=== PATIENT | female | born 1960 | race African-American/Black ===

== ENCOUNTER 2016-12-14 12:11 | Day surgery (SDC) | payer BC ==
[2016-12-13 15:22] VITALS: BMI 34.9
[2016-12-14] MEDS ORDERED: LIDOCAINE HCL/PF 2% SDV 5ML VIAL ONE (13:29)
[2016-12-14] MEDS ORDERED: ONDANSETRON 4 MG/2 ML VIAL ONE (13:29)
[2016-12-14] MEDS ORDERED: MIDAZOLAM HCL 2 MG/2 ML SINGLE DOSE VIAL ONE (13:29)
[2016-12-14] MEDS ORDERED: DEXAMETHASONE SOD PHOSPHATE 4 MG/1 ML VIAL ONE (13:29)
[2016-12-14] MEDS ORDERED: PROPOFOL 20 ML ONE (13:29)
[2016-12-14] MEDS ORDERED: oxyCODONE HCL 5 MG TABLET PO PRN (13:48)
[2016-12-14] MEDS ORDERED: PROMETHAZINE HCL 25 MG/1 ML VIAL IVPUSH PRN (13:48)
[2016-12-14] MEDS ORDERED: ONDANSETRON 4 MG/2 ML VIAL IVPUSH PRN (13:48)
--- NOTE | 2016-12-14 13:54 | HP ---
Past Medical History - Primary Care Physician PCP:: Suhas Dennis - Admission Chief Complaint: 56yo female with postmenopausal bleeding. History of Present Illness: h/o endometrial ablation. Pt had an episode of PMB and normal EMB by Dr. Nguyen. The US showed thickened endometrial echo complex and uterine myomas. History Source: Patient, Medical Record Limitations to Obtaining History: No Limitations - Past Medical History AMPOULE EXAMINER: No: Alzheimer's, CVA, Dementia, Migraine, Multiple Sclerosis, Peripheral Neuropathy, Parkinson's, Seizure, Syncope, TIA, Vertigo, Other Cardiovascular: Yes: CAD (Stent x 5), HTN, Other (hyperlipidemia) Pulmonary: No: Asthma, Bronchitis, Cancer, COPD, O2 Dependent, Pneumonia, Previously Intubated, Pulmonary Embolus, Pulmonary Fibrosis, Sleep Apnea, Other Gastrointestinal: No: Ascites, Cancer, Constipation, Crohn's Disease, Diverticulitis, Diverticulosis, Esophageal Varices, Gastritis, GERD, GI Bleed, Hemorrhoids, Hiatal Hernia, Inflamatory Bowel Disease, Irritable Bowel Disease, Pancreatitis, Peptic Ulcer Disease, Ulcerative Colitis, Other Hepatobiliary: No: Cirrhosis, Cholelithiasis, Cholecystitis, Choledocholithiasis , Hepatitis A, Hepatitis B, Hepatitis C, Other Renal/: No: Renal Failure, Renal Inusuff, BPH, Cancer, Hematuria, Hemodialysis , Neurogenic Bladder, Renal Calculi, UTI, Other Heme/Onc: No: Anemia, B12 Deficiency, Bleeding Disorder, Cancer, Current Chemotherapy, Current Radiation Therapy, Hemochromatosis, Hypercoaguable State, Myeloproliferative Synd, Sickle Cell Disease, Sickle Cell Trait, Thrombocytopenia, Other Infectious Disease: No: AIDS, C-Diff, Herpes Zoster, HIV, MRSA, STD's, Tuberculosis, VREF, Other Psych: No: Addictions, Anxiety, Bipolar, Depression, Panic, Psychosis, Schizophrenia, Other Rheumatology: Yes: Lupus Endocrine: Yes: Diabetes Mellitus (NIDDM), Other (goiter) Additional Medical History: SMOKER - Past Surgical History Hx Myomectomy: No Hx Transabdominal Cerclage: No Additional Surgical History: Endometrial ablation, cardiac stents, right breast surgery, right foot surgery - Smoking History Smoking history: Current every day smoker Have you smoked in the past 12 months: Yes Aproximately how many cigarettes per day: 10 - Alcohol/Substance Use Hx Alcohol Use: No - Social History Usual Living Arrangement: Yes: Alone ADL: Independent 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 History of Recent Travel: No Home Medications - Allergies Allergies/Adverse Reactions: Allergies Allergy/AdvReac Type Severity Reaction Status Date / Time Penicillins Allergy "I THROW Verified 12/13/16 15:32 UP" - Home Medications Home Medications: Ambulatory Orders Amlodipine Besylate [Norvasc -] 10 mg PO DAILY 12/13/16 Aspirin Coated [Ecotrin -] 81 mg PO DAILY 12/13/16 Atorvastatin Ca [Lipitor] 40 mg PO HS 12/13/16 Clopidogrel Bisulfate [Plavix -] 75 mg PO DAILY 12/13/16 Metformin HCl 1,000 mg PO BID 12/13/16 Family Disease History - Family Disease History Family Disease History: CA: Mother Review of Systems - Review of Systems Constitutional: reports: No Symptoms Eyes: reports: No Symptoms HENT: reports: No Symptoms Neck: reports: No Symptoms Cardiovascular: reports: No Symptoms Respiratory: reports: No Symptoms Gastrointestinal: reports: No Symptoms Genitourinary: reports: No Symptoms Breasts: reports: No Symptoms Reported Musculoskeletal: reports: No Symptoms Integumentary: reports: No Symptoms Neurological: reports: No Symptoms Endocrine: reports: No Symptoms Hematology/Lymphatic: reports: No Symptoms Psychiatric: reports: No Symptoms Pain Intensity: 0 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 Vital Signs: Vital Signs Temperature 98.0 F 12/14/16 12:58 Pulse Rate 96 H 12/14/16 12:58 Respiratory Rate 18 12/14/16 12:58 Blood Pressure 155/95 12/14/16 12:58 O2 Sat by Pulse Oximetry (%) 98 12/14/16 12:58 Constitutional: Yes: Well Nourished, No Distress, Calm Eyes: Yes: WNL, Conjunctiva Clear, EOM Intact HENT: Yes: WNL, Atraumatic, Normocephalic Neck: Yes: WNL, Supple, Trachea Midline Cardiovascular: Yes: WNL, Regular Rate and Rhythm Respiratory: Yes: WNL, Regular, CTA Bilaterally Gastrointestinal: Yes: WNL, Normal Bowel Sounds, Soft, Abdomen, Obese Renal/: Yes: WNL Pelvis: Yes: WNL External Genitalia: Yes: Normal Vaginal Exam: Yes: Normal Cervix: Yes: Normal Uterus: Yes: Normal, Freely Moveable Adnexa: Normal: Left, Right Musculoskeletal: Yes: WNL Extremities: Yes: WNL Edema: No Integumentary: Yes: WNL Neurological: Yes: WNL, Alert, Oriented ...Motor Strength: WNL Psychiatric: Yes: WNL, Alert, Oriented Imaging - Results Ultrasound: Report Reviewed Assessment/Plan 56 yo female with postmenopausal bleeding, thickened endometrial echo, fibroids , prior endometrial ablation. Pt is admitted for hysteroscopy, D&C. We had a long discussion about the risks, benefits, alternatives of surgery. We discussed increased risks due to prior ablation, diabetes, obesity. I explained the risks of infection, perforation, bleeding, pain, injury to surrounding organs and/or structures, etc. The pt verbalized her understanding and requested to proceed.
[2016-12-14] MEDS ORDERED: CLINDAMYCIN 600 MG PREMIX BAG IVPB ONE (13:55)
[2016-12-14] MEDS ORDERED: LACTATED RINGERS SOLUTION 1,000 ML IV SCH (14:00)
[2016-12-14] MEDS ORDERED: CLINDAMYCIN PHOSPHATE 600 MG/4 ML VIAL ONE (14:01)
[2016-12-14] MEDS ORDERED: IBUPROFEN 600 MG TABLET (FP) PO PRN (15:18)
[2016-12-14] MEDS ORDERED: ACETAMINOPHEN 325 MG TABLET (FP) PO PRN (15:18)
--- NOTE | 2016-12-14 15:21 | OP ---
Operative Note - Note: Operative Date: 12/14/16 Pre-Operative Diagnosis: Postmenopausal bleeding Operation: D&C, hysteroscopy, polypectomy Findings: Small, AV uterus, small endometrial polyps. Post-Operative Diagnosis: Same as Pre-op Surgeon: Suhas Dennis Anesthesiologist/SPINNING BATH PERSON: Deanne Chan MD Anesthesia: General Specimens Removed: Endometrial curettings, uterine polyps Estimated Blood Loss (mls): 5 Blood Volume Replaced (mls): 0 Fluid Volume Replaced (mls): 300 Operative Report Dictated: Yes
[2016-12-14 15:51] VITALS: TEMP 97.7
[2016-12-14 16:58] VITALS: BP 143/80; PULSE 83
--- NOTE | 2016-12-15 15:54 | OP ---
DATE OF OPERATION: 12/14/2016 PREOPERATIVE DIAGNOSIS: Postmenopausal bleeding. POSTOPERATIVE DIAGNOSIS: Postmenopausal bleeding and uterine polyps. PROCEDURE: Hysteroscopy, dilatation and curettage, polypectomy. SURGEON: Suhas Dennis MD ANESTHESIOLOGIST: Deanne Chan MD ANESTHESIA: General. COMPLICATIONS: None. PATHOLOGY: Endometrial curettings and uterine polyps. INTRAVENOUS FLUIDS: 300 mL of crystalloid ESTIMATED BLOOD LOSS: 5 mL. FINDINGS: Examination under anesthesia revealed a small anteverted uterus with no pelvic or adnexal masses. Hysteroscopy revealed a small uterine cavity with several endometrial polyps. Diffuse uterine/endometrial scarring was noted, consistent with patient's previous history of endometrial ablation. Post-procedure hysteroscopy confirmed no retained uterine polyps. DESCRIPTION OF PROCEDURE: The patient was met preoperatively. Risks, benefits, and alternatives of surgery were discussed in detail. All questions were answered. The patient was then brought to the or with IV running. The patient was placed on the surgical table in the supine position. The general anesthesia was achieved without difficulty. The patient was then placed in a dorsal lithotomy position using adjustable Tony stirrups. The patient was examined under anesthesia with the findings as described above. The patient was then prepped and draped in the usual sterile fashion. A sterile speculum was introduced inside the vagina, with good visualization of the cervix. The anterior cervical lip was grasped with a single-tooth tenaculum. The cervical os was dilated to accommodate size 23 Hummel dilator. A hysteroscope was introduced inside the uterine cavity with the findings as described previously. The hysteroscope was then removed and uterine polyps were excised. A sharp curettage was then performed throughout the endometrial cavity. The tissue was submitted to pathology for evaluation. The hysteroscope was then once again introduced into the uterine cavity, and no polyps were noted. Good hemostasis was confirmed. The instruments were then removed from the patient. Once again good hemostasis was confirmed. Sponge, lap, and instrument counts were correct. The patient was returned to supine position. The patient was then transferred to recovery room awake and in stable condition. Suzie PRUETT/[id number]
--- NOTE | 2016-12-16 14:35 | PATH ---
Surgical Pathology Report Patient Name: [facility]. Rec. #: [id number] /Age/Gender: 1960 (Age: 56) / F Account: [id number] Location: [facility] SURGICAL Taken: 12/14/2016 Received: 12/15/2016 Reported: 12/16/2016 Physicians: Suhas Dennis M.D. Specimen(s) Received ENDOMETRIAL CURETTINGS Clinical History Postmenopausal bleeding Final Diagnosis ENDOMETRIUM AND POLYP, CURETTAGE: FRAGMENTS OF ENDOMETRIAL POLYP. BENIGN SQUAMOUS EPITHELIUM AND ENDOCERVICAL GLANDULAR TISSUE. Electronically Signed Arline Brady M.D. Gross Description Received in formalin labeled "endometrial curetting and polyps," is a 2.0 x 1.5 x 0.3 cm aggregate of kapadia-brown soft tissue fragments. The formalin is filtered and the specimen is entirely submitted in one cassette. /12/15/2016 saudi12/15/2016
== END 2016-12-14 17:01 | disposition home or self-care (01) ==
LOC: JASU-SURG 12:11
PROVIDERS: ATTEND Obstetrics & Gynecology
PROC: 0UB98ZX Excision of Uterus, Via Natural or Artificial Opening Endoscopic, Diagnostic (ICD-10-PCS; principal; 2016-12-14 14:00)
PROC: 0UDB8ZX Extraction of Endometrium, Via Natural or Artificial Opening Endoscopic, Diagnostic (ICD-10-PCS; 2016-12-14 14:00)
DX: N95.0 Postmenopausal bleeding (principal); N84.0 Polyp of corpus uteri
CPT/HCPCS: 88305-TC; 94760